=== PATIENT | male | born 1995 | race African-American/Black ===

== ENCOUNTER 2019-05-04 20:42 | Emergency (ER) | payer OTHER ==
[2019-05-04] MEDS ORDERED: predniSONE 20 MG TAB ONE (20:58)
[2019-05-04] MEDS ORDERED: Famotidine 20 MG TAB ONE (20:58)
== END 2019-05-04 21:59 ==
LOC: ERS 20:42 → EEVIPCON 20:42 → EDBD 20:42 → ERS 21:59
DX: L50.0 Allergic urticaria (principal)
CPT/HCPCS: 99283; J7512